=== PATIENT | male | born 1965 | race Caucasian/White ===

== ENCOUNTER 2019-10-09 09:19 | Inpatient (IN) | payer OTHER ==
[~2019-10-09] VITALS: Ht 180.3 cm; Wt 90.5 kg
[2019-10-09] MEDS ORDERED: cloNIDine HCL 0.1 MG TAB ONE (09:32)
[2019-10-09] MEDS ORDERED: levoFLOXacin 500MG 100 ML IV ONE (09:37)
[2019-10-09] MEDS ORDERED: cloNIDine HCL 0.1 MG TAB PO ONE (09:45)
[2019-10-09 10:02] LABS: Basophils # (auto) 0 uL; Basophils % (auto) 0.5 % (0.0-2.0); Eosinophils # (auto) 0 uL; Eosinophils % (auto) 0.7 % (0.0-7.0); Hematocrit 37.7 % (41.0-53.0); Hemoglobin 12.7 g/dL (13.5-17.5); Lymphocytes % (auto) 14.4 % (10.0-50.0); Mean Corpuscular Hemoglobin 29.4 pg (28.0-32.0); Mean Corpuscular Hgb Conc. 33.6 g/dL (32.0-36.0); Mean Corpuscular Volume 87.6 fL (80.0-100.0); Monocytes # (auto) 0.5 uL; Neutrophils # (auto) 5.4 uL; Neutrophils % (auto) 77.4 % (37.0-80.0); Nucleated Red Blood Cells % 0.1 %; Platelet Count (auto) 278 10^3/uL (140-450); Red Cell Distribution Width 12.7 % (11.8-14.3); White Blood Cell 6.9 10^3/uL (4.4-10.8)
[2019-10-09 10:26] LABS: Albumin 2.2 g/dL (3.4-5.0); Calcium 8.3 mg/dL (8.5-10.1); Potassium 3.9 mmol/L (3.5-5.1)
[2019-10-09 10:35] LABS: BUN/Creatinine Ratio 8.3; Bilirubin, Total 0.7 mg/dL (0.2-1.0)
[2019-10-09] MEDS ORDERED: SODIUM CHLORIDE 0.9% 1,000 ML IV ONE ×2 (11:31)
[2019-10-09] MEDS ORDERED: InsuLIN REG 1unit/0.01ml Soln (100units/ml) IV ONE (11:45)
[2019-10-09] MEDS ORDERED: ASPirin 81 mg TAB PO ONE (11:45)
[2019-10-09] MEDS ORDERED: ENOXAPARIN SOD 80 MG/0.8ML SYRINGE SC ONE (11:45)
[2019-10-09 12:39] LABS: Urine Bacteria FEW /hpf (None Seen); Urine Blood 1+ /uL (Negative); Urine Hyaline Cast FEW /lpf (0 - 2); Urine Specific Gravity 1.018 (1.001-1.035); Urine WBC 2 /hpf (0 - 3)
[2019-10-09] MEDS ORDERED: DEXTROSE (50%) 50ML SYRG IV PRN (14:15)
[2019-10-09] MEDS ORDERED: HYDROcodone-ACET 5/325MG TAB PO PRN (14:15)
[2019-10-09] MEDS ORDERED: NITROGLYCERIN 0.4 MG SL TAB SL PRN (14:15)
[2019-10-09] MEDS ORDERED: hydrALAZINE HCL 20 MG/ML VL IV PRN (14:15)
[2019-10-09] MEDS ORDERED: ACETAMINOPHEN 500 MG TAB PO PRN (14:15)
[2019-10-09] MEDS ORDERED: ONDANSETRON HCL 4 MG/2 ML VIAL IV PRN (14:15)
[2019-10-09] MEDS ORDERED: MORPHINE SULF INJ 2 MG/ML SYRINGE 1ML IV PRN ×2 (14:15)
[2019-10-09] MEDS: NITROGLYCERIN 0.4MG/HR TOPICAL PATCH TD SCH (15:39)
[2019-10-09] MEDS: ACCU-CHEK COMFORT CURVE STRIP VI SCH ×2 (16:04→20:00)
[2019-10-09] MEDS: InsuLIN REG 1unit/0.01ml Soln (100units/ml) SC SCH ×2 (16:17→21:24)
--- NOTE | 2019-10-09 18:30 | NUR ---
Telemetry admit from ER EJ SHEPARD admitted to Telemetry unit after SBAR received. Patient oriented to MARIOLA VALDEZ RN primary RN, unit, room, bed, and unit policies regarding patient care and visiting hours. Patient now on continuous telemetry monitoring, tele box #[id number] and telemetry reading on arrival to unit is Sinus Rhythm 72. Patient weighed by bedscale and encouraged to call if they need something. All questions and concerns addressed, patient verbalized understanding.
--- NOTE | 2019-10-09 19:25 | NUR ---
Opening Shift Note Assumed care of patient, awake and alert. No S/S of distress/SOB reported at this time, c/o chest tightness across chest wall, not requesting any pain medication at this time, chest discomfort does not radiate, asked patient to rate discomfort on a number scale of 1-10, sates " like a 4, its just there and doesn't change" no c/o nausea at this time, no facial grimacing, moaning or restlessness noted. Instructed on POC and to call for assist PRN, call light within reach, will continue to monitor for changes Q1hr and PRN.
[2019-10-09 20:00] VITALS: BP 154/93
--- NOTE | 2019-10-09 20:50 | NUR ---
CARDIOLOGY AT BEDSIDE DR MCKEON AT BEDSIDE DISCUSSING POC WITH PT, NEW ORDERS RECEIVED, CONT CARE
[2019-10-09] MEDS: ATORVASTATIN 20 MG TAB PO SCH (21:25)
[2019-10-09] MEDS: DOCUSATE SOD 100 MG CAP PO SCH (21:25)
[2019-10-09] MEDS: METOPROLOL TARTRATE 25 MG TAB PO SCH (21:26)
[2019-10-09 22:00] VITALS: BP 154/93
[2019-10-10] MEDS: ACCU-CHEK COMFORT CURVE STRIP VI SCH ×6 (04:00→22:02)
[2019-10-10] MEDS: InsuLIN REG 1unit/0.01ml Soln (100units/ml) SC SCH ×6 (04:00→22:04)
[2019-10-10 05:00] VITALS: BP 149/87
--- NOTE | 2019-10-10 05:21 | NUR ---
PT ROUNDS PT SLEEPING, BREATHING EVEN AND UNLABORED, ON RA, NO CURRENT C/O CP, SOB OR ANY OTHER DISCOMFORT, CALL LIGHT WITHIN REACH, PT CURRENTLY AWARE HE IS NPO FOR STRESS TEST THIS MORNING, CONT CARE
[2019-10-10 06:07] LABS: Basophils # (auto) 0 uL; Basophils % (auto) 0.4 % (0.0-2.0); Eosinophils # (auto) 0.1 uL; Eosinophils % (auto) 0.5 % (0.0-7.0); Hematocrit 29.5 % (41.0-53.0); Hemoglobin 10.3 g/dL (13.5-17.5); Lymphocytes # (auto) 1.5 uL; Lymphocytes % (auto) 14.6 % (10.0-50.0); Mean Corpuscular Hemoglobin 29.8 pg (28.0-32.0); Mean Corpuscular Hgb Conc. 34.8 g/dL (32.0-36.0); Mean Corpuscular Volume 85.6 fL (80.0-100.0); Monocytes # (auto) 0.7 uL; Neutrophils # (auto) 7.7 uL; Neutrophils % (auto) 77.5 % (37.0-80.0); Platelet Count (auto) 244 10^3/uL (140-450); Red Blood Cells 3.44 10^6/uL (4.5-5.90); Red Cell Distribution Width 12.8 % (11.8-14.3); White Blood Cell 9.9 10^3/uL (4.4-10.8)
[2019-10-10] MEDS ORDERED: METF-370 PO (06:13)
[2019-10-10] MEDS ORDERED: LISI-275 PO (06:13)
[2019-10-10] MEDS ORDERED: GLIP5TAB12 PO (06:13)
[2019-10-10 06:22] LABS: BUN/Creatinine Ratio 10.1; Calcium 7.8 mg/dL (8.5-10.1); Potassium 3.3 mmol/L (3.5-5.1)
[2019-10-10 08:27] VITALS: BP 154/93
[2019-10-10 09:00] VITALS: BP 169/96
[2019-10-10] MEDS ORDERED: ADENOSINE 75 MG in GIVE UN-DILUTED 0 ML IV ONE (09:15)
[2019-10-10] MEDS: METOPROLOL TARTRATE 25 MG TAB PO SCH ×2 (09:43→21:43)
[2019-10-10] MEDS: LISINOPRIL 10 MG TAB PO SCH ×2 (09:43→16:08)
[2019-10-10] MEDS: ASPirin-EC 81 mg tab PO SCH ×2 (09:43→16:08)
[2019-10-10] MEDS: DOCUSATE SOD 100 MG CAP PO SCH ×2 (09:43→22:03)
[2019-10-10] MEDS: NITROGLYCERIN 0.4MG/HR TOPICAL PATCH TD SCH ×2 (09:43→16:08)
[2019-10-10 13:00] VITALS: BP 172/100
[2019-10-10 13:03] LABS: Cholesterol 266 mg/dL (< 200)
[2019-10-10 13:06] LABS: HDL Cholesterol 48 mg/dL (40-59); LDL Cholesterol 190 mg/dL (< 100); Triglycerides 287 mg/dL (< 150)
[2019-10-10 16:39] VITALS: BP 160/101
--- NOTE | 2019-10-10 19:30 | NUR ---
received pt from day rn poc reviewed
[2019-10-10] MEDS: ATORVASTATIN 20 MG TAB PO SCH (21:43)
[2019-10-10 22:00] VITALS: BP 183/94
--- NOTE | 2019-10-10 22:00 | NUR ---
b/p 183/94, prn apresoline given as ordered
--- NOTE | 2019-10-10 23:40 | NUR ---
b/p 138/72 hr 78 after prn med given
[2019-10-11] MEDS: ACCU-CHEK COMFORT CURVE STRIP VI SCH ×6 (00:35→19:55)
[2019-10-11] MEDS: InsuLIN REG 1unit/0.01ml Soln (100units/ml) SC SCH ×6 (00:35→19:55)
--- NOTE | 2019-10-11 00:57 | NUR ---
no c/o perez or discomfort
--- NOTE | 2019-10-11 04:05 | NUR ---
resting quietly call light within reach
[2019-10-11 05:00] VITALS: BP 129/75
[2019-10-11 07:39] VITALS: BP 154/93
--- NOTE | 2019-10-11 07:40 | NUR ---
REPORT GIVEN TO AM NURSE POC REVIEWED
--- NOTE | 2019-10-11 08:00 | NUR ---
AWAKE ALERT ORIENTED TIMES 4 DENIES ANY CHEST PAIN AT THIS TIME. AWAITING STRESS TEST RESULTS.
[2019-10-11 09:00] VITALS: BP 151/75
[2019-10-11] MEDS: ASPirin-EC 81 mg tab PO SCH (09:33)
[2019-10-11] MEDS: DOCUSATE SOD 100 MG CAP PO SCH ×2 (09:33→21:44)
[2019-10-11] MEDS: NITROGLYCERIN 0.4MG/HR TOPICAL PATCH TD SCH (09:33)
[2019-10-11] MEDS: METOPROLOL TARTRATE 25 MG TAB PO SCH ×2 (09:33→21:46)
[2019-10-11] MEDS: LISINOPRIL 10 MG TAB PO SCH (09:34)
[2019-10-11 13:00] VITALS: BP 145/86
[2019-10-11 17:00] VITALS: BP 147/87
--- NOTE | 2019-10-11 19:13 | NUR ---
Opening Shift Note Assumed care of patient, sleeping at this time. No S/S of distress/SOB or pain. will continue to monitor for changes Q1hr and PRN.
[2019-10-11] MEDS: ATORVASTATIN 20 MG TAB PO SCH (21:45)
[2019-10-11 22:00] VITALS: BP 150/93
[2019-10-12] MEDS: ACCU-CHEK COMFORT CURVE STRIP VI SCH ×4 (00:03→12:05)
[2019-10-12] MEDS: InsuLIN REG 1unit/0.01ml Soln (100units/ml) SC SCH ×4 (03:37→12:06)
[2019-10-12 05:00] VITALS: BP 150/83
[2019-10-12 08:00] VITALS: BP 155/87
[2019-10-12 09:00] VITALS: BP 155/87
[2019-10-12] MEDS: ASPirin-EC 81 mg tab PO SCH (10:53)
[2019-10-12] MEDS: NITROGLYCERIN 0.4MG/HR TOPICAL PATCH TD SCH (10:53)
[2019-10-12] MEDS: DOCUSATE SOD 100 MG CAP PO SCH (10:53)
[2019-10-12] MEDS: LISINOPRIL 10 MG TAB PO SCH (10:54)
[2019-10-12] MEDS: METOPROLOL TARTRATE 25 MG TAB PO SCH (10:54)
--- NOTE | 2019-10-12 11:15 | NUR ---
DR HENDRICKS ROUNDING STRESS TEST RESULTS PENDING. WILL FOLLOW UP.
[2019-10-12 13:00] VITALS: BP 174/107
--- NOTE | 2019-10-12 16:15 | NUR ---
Discharge instructions given as ordered. Encourage to follow up with PMD as instructed. All questions and concerns addressed. Patient verbalized understanding. Medication reconciliation form completed and copy given to patient. No Home medications held in Pharmacy and none to be returned to patient, and no needed vaccines given. IV removed with catheter intact, pressure dressing applied. Telemetry unit returned to ICU. Patient walked to vehicle with all personal belongings. No distress noted at time of departure.
== END 2019-10-12 16:15 | disposition home or self-care (01) | DRG 280 ==
LOC: ER 09:19 → TELE 09:20 → TELE-WESTW 18:30
PROVIDERS: ADMIT Nurse Practitioner Acute Care; ATTEND Family Medicine
DX: I21.4 Non-ST elevation (NSTEMI) myocardial infarction (principal); E43 Unspecified severe protein-calorie malnutrition; I21.9 Acute myocardial infarction, unspecified; E11.65 Type 2 diabetes mellitus with hyperglycemia; E11.22 Type 2 diabetes mellitus with diabetic chronic kidney disease; I12.9 Hypertensive chronic kidney disease with stage 1 through stage 4 chronic kidney disease, or unspecified chronic kidney disease; N18.3 Chronic kidney disease, stage 3 (moderate); Z79.82 Long term (current) use of aspirin; Z79.84 Long term (current) use of oral hypoglycemic drugs; Z79.899 Other long term (current) drug therapy; Z87.891 Personal history of nicotine dependence; Z91.19 Patient's noncompliance with other medical treatment and regimen; Z90.49 Acquired absence of other specified parts of digestive tract
CPT/HCPCS: 36415; 71045; 71046; 78452; 80048; 80053; 80061; 81001; 82962; 83036; 83880; 84484; 85025; 86141; 93005; 93017; 93306; 99291; G0378; J0153; J1815; J1956